=== PATIENT | female | born 1930 | race African-American/Black ===

== ENCOUNTER 2020-12-19 10:50 | Inpatient (IN) | payer BC ==
[~2020-12-19] VITALS: Ht 157.5 cm; Wt 62.7 kg
[~2020-12-19 10:50] MED LIST: LIDOCAINE HCL/PF 1% 2ML VIAL ONE
[2020-12-19] MEDS ORDERED: ASPIRIN 325MG TABLET PO ONE (11:30)
[2020-12-19 11:37] LABS: BASOPHILS % 0.5 % (0.0-2.0); HEMATOCRIT. 37.6 % (36.0-48.0); HEMOGLOBIN. 12.6 g/dL (12.0-16.0); LYMPHOCYTES % 24.9 % (20.0-50.0); MEAN CORPUSCULAR HEMOGLOBIN 28.2 pg (28.0-32.0); MEAN CORPUSCULAR VOLUME 84.2 fL (81.0-99.0); MEAN PLATELET VOLUME 8.8 fl (7.4-10.4); MONOCYTES % 3.5 % (2.0-8.0); NEUTROPHILS % 70.1 % (40.0-76.0); PLATELET 276 x1000/uL (130-400); RED BLOOD CELL COUNT 4.46 mill/uL (4.2-5.4); RED CELL DISTRIBUTION WIDTH 15.3 % (11.6-14.6)
[2020-12-19 11:45] LABS: CHLORIDE 102 mEq/L (98-107)
[2020-12-19 11:53] LABS: PROTHROMBIN TIME 11.1 sec (9.6-11.0)
[2020-12-19 11:55] LABS: BG BASE EXCESS 4.1 mmol/L (-2.0-2.0); BG CARBOXYHEMOGLOBIN 0.5 % (0.5-1.5); BG DEOXYHEMOGLOBIN 5.9 % (0.0-5.0); BG FRACTION INSPIRED OXYGEN 28; BG HCO3 ACT 29.3 mmol/L (22.0-26.0); BG METHEMOGLOBIN 0.3 % (0.0-1.5); BG OXYGEN SATURATION 94.1 % (92.0-98.5); BG OXYHEMOGLOBIN 93.3 % (94.0-97.0); BG PCO2 46.7 mmHg (35.0-45.0); BG PH 7.416 (7.350-7.450); BG PO2 70.1 mmHg (75.0-100.0); BG SAMPLE SITE RIGHT RADIAL; BG TOTAL HEMOGLOBIN 12.7 g/dL (12.0-18.0); BG VENT MODE NASAL CANNULA
[2020-12-19] MEDS ORDERED: CEFTRIAXONE 1 G PREMIX 50 ML IV ONE (12:00)
[2020-12-19] MEDS ORDERED: AZITHROMYCIN 500 MG TABLET PO ONE (12:00)
[2020-12-19] MEDS ORDERED: FUROSEMIDE 20MG/2ML VIAL IVP ONE (12:00)
[2020-12-19] MEDS ORDERED: POTASSIUM CHLORIDE 20MEQ TABLET SR PO ONE (12:15)
[2020-12-19] MEDS ORDERED: AMLODIPINE 5MG TABLET PO NR (12:45)
[2020-12-19] MEDS ORDERED: ENOXAPARIN 80MG/0.8ML SYR SUBCUT SCH (13:15)
[2020-12-19] MEDS: NITROGLYCERIN OINT 1GM/INCH UDPKT TD SCH ×3 (13:32→20:00)
[2020-12-19 17:30] VITALS: BP 174/104
[2020-12-19] MEDS: POTASSIUM CHLORIDE 20MEQ TABLET SR PO SCH (18:28)
[2020-12-19 18:29] VITALS: BP 168/88
[2020-12-19] MEDS: FUROSEMIDE 40MG/4ML VIAL IVP SCH (18:29)
[2020-12-19] MEDS ORDERED: ACETAMINOPHEN 325MG TABLET PO PRN ×2 (19:00)
[2020-12-19] MEDS ORDERED: MAGNESIUM/ALUMINUM HYDROXIDE/SIMETHICONE 30ML UDC PO PRN (19:00)
[2020-12-19] MEDS ORDERED: CLONIDINE 0.1MG TABLET PO PRN (19:00)
[2020-12-19] MEDS ORDERED: HYDRALAZINE 20MG/ML VIAL IV PRN (19:00)
[2020-12-19] MEDS ORDERED: ONDANSETRON HCL 4MG/2ML INJ IV PRN (19:00)
[2020-12-19 19:26] LABS: T4 FREE 1.35 ng/dL (0.76-1.46)
[2020-12-19 20:00] VITALS: BP 163/102
[2020-12-19] MEDS ORDERED: CARVEDILOL 12.5MG TABLET PO SCH (21:00)
[2020-12-19] MEDS ORDERED: ZOLPIDEM TARTRATE 5MG TABLET PO PRN (21:00)
[2020-12-19] MEDS: OMEPRAZOLE 20MG CAPSULE EXTENDED RELEASE PO SCH (21:33)
[2020-12-19] MEDS: AMLODIPINE 5MG TABLET PO SCH (21:34)
[2020-12-19] MEDS: SODIUM CHLORIDE 0.9% INJ 3ML FLUSH IVF SCH (21:35)
[2020-12-19] MEDS: TIMOLOL MALEATE 0.5% OPHTH DROPS 5ML EACHEYE SCH (21:36)
[2020-12-19 22:00] VITALS: BP 131/64
[2020-12-19] MEDS ORDERED: ENOXAPARIN 60MG/0.6ML SYR SUBCUT NR (22:00)
[2020-12-19] MEDS ORDERED: CLONIDINE 0.1MG TABLET PO SCH (22:00)
[2020-12-20] VITALS (11 sets, daily range): BP systolic 100–146; BP diastolic 44–99
[2020-12-20] MEDS: NITROGLYCERIN OINT 1GM/INCH UDPKT TD SCH ×4 (00:27→21:18)
[2020-12-20] MEDS: OMEPRAZOLE 20MG CAPSULE EXTENDED RELEASE PO SCH ×2 (06:45→21:16)
[2020-12-20] MEDS: FUROSEMIDE 40MG/4ML VIAL IVP SCH ×2 (06:45→17:16)
[2020-12-20] MEDS: SODIUM CHLORIDE 0.9% INJ 3ML FLUSH IVF SCH ×3 (06:45→21:17)
[2020-12-20 06:50] LABS: BASOPHILS % 0.8 % (0.0-2.0); EOSINOPHILS % 0.1 % (0.0-5.0); HEMATOCRIT. 32.9 % (36.0-48.0); LYMPHOCYTES % 25.9 % (20.0-50.0); MEAN CORPUSCULAR HEMOGLOBIN 27.9 pg (28.0-32.0); MEAN CORPUSCULAR VOLUME 83.8 fL (81.0-99.0); MEAN PLATELET VOLUME 9.3 fl (7.4-10.4); MONOCYTES % 5.2 % (2.0-8.0); PLATELET 239 x1000/uL (130-400); RED BLOOD CELL COUNT 3.93 mill/uL (4.2-5.4)
[2020-12-20 07:40] LABS: CHLORIDE 102 mEq/L (98-107)
[2020-12-20 07:51] LABS: PHOSPHORUS 3.1 mg/dL (2.5-4.9)
[2020-12-20] MEDS: POTASSIUM CHLORIDE 20MEQ TABLET SR PO SCH ×2 (09:37→17:15)
[2020-12-20] MEDS: CARVEDILOL 6.25 MG TABLET PO SCH ×2 (09:38→21:16)
[2020-12-20] MEDS: AMLODIPINE 5MG TABLET PO SCH ×2 (09:38→21:16)
[2020-12-20] MEDS: TIMOLOL MALEATE 0.5% OPHTH DROPS 5ML EACHEYE SCH (21:15)
[2020-12-20] MEDS ORDERED: ENOXAPARIN 60MG/0.6ML SYR SUBCUT ONE (22:00)
[2020-12-21] VITALS (13 sets, daily range): BP systolic 108–160; BP diastolic 61–99
[2020-12-21] MEDS: SODIUM CHLORIDE 0.9% INJ 3ML FLUSH IVF SCH (05:44)
[2020-12-21] MEDS: OMEPRAZOLE 20MG CAPSULE EXTENDED RELEASE PO SCH ×2 (05:44→21:27)
[2020-12-21] MEDS: NITROGLYCERIN OINT 1GM/INCH UDPKT TD SCH ×3 (05:44→21:26)
[2020-12-21 06:09] LABS: BASOPHILS % 0.7 % (0.0-2.0); EOSINOPHILS % 1.2 % (0.0-5.0); HEMATOCRIT. 34.8 % (36.0-48.0); HEMOGLOBIN. 11.5 g/dL (12.0-16.0); LYMPHOCYTES % 44.6 % (20.0-50.0); MEAN CORPUSCULAR VOLUME 84.5 fL (81.0-99.0); MEAN PLATELET VOLUME 9.2 fl (7.4-10.4); MONOCYTES % 8.2 % (2.0-8.0); NEUTROPHILS % 45.3 % (40.0-76.0); PLATELET 246 x1000/uL (130-400); RED BLOOD CELL COUNT 4.12 mill/uL (4.2-5.4)
[2020-12-21 06:44] LABS: CHLORIDE 102 mEq/L (98-107)
[2020-12-21] MEDS: FUROSEMIDE 40MG/4ML VIAL IVP SCH (07:27)
[2020-12-21] MEDS: AMLODIPINE 5MG TABLET PO SCH ×2 (08:16→21:27)
[2020-12-21] MEDS: CARVEDILOL 6.25 MG TABLET PO SCH ×2 (08:16→21:27)
[2020-12-21] MEDS: POTASSIUM CHLORIDE 20MEQ TABLET SR PO SCH ×2 (08:16→18:05)
[2020-12-21] MEDS ORDERED: KCL 20MEQ/100ML PREMIX 100 ML IV ONE (08:30)
[2020-12-21] MEDS ORDERED: DEXT 5%/0.45% NACL 1000ML 1,000 ML IV SCH (09:15)
[2020-12-21] MEDS ORDERED: ASPIRIN 81MG EC TABLET PO SCH (15:00)
[2020-12-21] MEDS: TIMOLOL MALEATE 0.5% OPHTH DROPS 5ML EACHEYE SCH (21:26)
[2020-12-21] MEDS ORDERED: ENOXAPARIN 60MG/0.6ML SYR SUBCUT SCH (22:00)
[2020-12-22] VITALS (23 sets, daily range): BP systolic 96–190; BP diastolic 47–117
[2020-12-22] MEDS: OMEPRAZOLE 20MG CAPSULE EXTENDED RELEASE PO SCH (06:03)
[2020-12-22] MEDS: NITROGLYCERIN OINT 1GM/INCH UDPKT TD SCH ×3 (06:18→21:32)
[2020-12-22 11:05] LABS: CHLORIDE 103 mEq/L (98-107)
[2020-12-22] MEDS ORDERED: NITROGLYCERIN 50MCG/ML 10ML VIAL (CATH LAB) IV ONE (14:00)
[2020-12-22] MEDS ORDERED: HEPARIN SODIUM 1,000 UNIT/1ML VIAL IV ONE (14:00)
[2020-12-22] MEDS ORDERED: NICARDIPINE 100MCG/ML 10ML VIAL (CATH LAB) IV ONE (14:00)
[2020-12-22] MEDS ORDERED: LIDOCAINE HCL 1% 20ML VIAL (Pyxis) INJ ONE (14:06)
[2020-12-22] MEDS ORDERED: IOHEXOL-300 100 ML BOTTLE ONE (14:06)
[2020-12-22] MEDS ORDERED: IODIXANOL 320MG/ML 200ML BOTTLE ONE (14:06)
[2020-12-22] MEDS ORDERED: FENTANYL CITRATE/PF 50MCG/ML 2ML VIAL ONE (14:20)
[2020-12-22] MEDS ORDERED: MIDAZOLAM HCL 2 MG/2 ML VIAL ONE (14:20)
[2020-12-22] MEDS ORDERED: ASPIRIN 325MG TABLET ONE (15:21)
[2020-12-22] MEDS ORDERED: CLOPIDOGREL 75MG TABLET ONE (15:21)
[2020-12-22] MEDS ORDERED: ACETAMINOPHEN 325MG TABLET PO PRN (15:30)
[2020-12-22] MEDS ORDERED: ONDANSETRON HCL 4MG/2ML INJ IV PRN (15:30)
[2020-12-22] MEDS ORDERED: ATROPINE SULFATE 1MG/10ML SYR IV PRN (15:30)
[2020-12-22] MEDS: POTASSIUM CHLORIDE 20MEQ TABLET SR PO SCH ×2 (15:48→21:32)
[2020-12-22] MEDS: FUROSEMIDE 40MG/4ML VIAL IVP SCH (15:48)
[2020-12-22] MEDS: CARVEDILOL 6.25 MG TABLET PO SCH ×2 (15:49→21:32)
[2020-12-22] MEDS: AMLODIPINE 5MG TABLET PO SCH ×2 (15:49→21:32)
[2020-12-22] MEDS ORDERED: KCL 10MEQ/50ML PREMIX 50 ML IV NR (17:30)
[2020-12-22] MEDS: TIMOLOL MALEATE 0.5% OPHTH DROPS 5ML EACHEYE SCH (21:32)
[2020-12-23] VITALS (9 sets, daily range): BP systolic 97–156; BP diastolic 39–88
[2020-12-23] MEDS: NITROGLYCERIN OINT 1GM/INCH UDPKT TD SCH ×2 (05:09→13:26)
[2020-12-23 06:47] LABS: CHLORIDE 103 mEq/L (98-107)
[2020-12-23 06:49] LABS: BASOPHILS % 0.5 % (0.0-2.0); EOSINOPHILS % 1.1 % (0.0-5.0); HEMATOCRIT. 35.3 % (36.0-48.0); HEMOGLOBIN. 11.7 g/dL (12.0-16.0); LYMPHOCYTES % 35.3 % (20.0-50.0); MEAN CORPUSCULAR HEMOGLOBIN 28.1 pg (28.0-32.0); MEAN CORPUSCULAR VOLUME 84.6 fL (81.0-99.0); MEAN PLATELET VOLUME 9.3 fl (7.4-10.4); MONOCYTES % 9.6 % (2.0-8.0); NEUTROPHILS % 53.5 % (40.0-76.0); PLATELET 272 x1000/uL (130-400); RED BLOOD CELL COUNT 4.17 mill/uL (4.2-5.4); RED CELL DISTRIBUTION WIDTH 14.9 % (11.6-14.6)
[2020-12-23] MEDS ORDERED: FAMOTIDINE 20MG TABLET PO SCH (06:50)
[2020-12-23] MEDS ORDERED: ASPIRIN 325MG TABLET PO SCH (09:00)
[2020-12-23] MEDS: FUROSEMIDE 40MG/4ML VIAL IVP SCH (09:00)
[2020-12-23] MEDS ORDERED: CLOPIDOGREL 75MG TABLET PO SCH (09:00)
[2020-12-23] MEDS: AMLODIPINE 5MG TABLET PO SCH (09:14)
[2020-12-23] MEDS: CARVEDILOL 6.25 MG TABLET PO SCH (09:14)
[2020-12-23] MEDS: POTASSIUM CHLORIDE 20MEQ TABLET SR PO SCH ×2 (09:14→09:20)
== END 2020-12-23 15:30 | disposition home or self-care (01) | DRG 246 ==
LOC: ER 10:50 → 3WST 11:56 → ENRESERV 15:23 → 3WST 12-22 18:24
PROVIDERS: ADMIT Internal Medicine; ATTEND Internal Medicine
PROC: 027034Z Dilation of Coronary Artery, One Artery with Drug-eluting Intraluminal Device, Percutaneous Approach (ICD-10-PCS; principal; 2020-12-22)
PROC: B2111ZZ Fluoroscopy of Multiple Coronary Arteries using Low Osmolar Contrast (ICD-10-PCS; 2020-12-22)
DX: I21.4 Non-ST elevation (NSTEMI) myocardial infarction (principal); I50.43 Acute on chronic combined systolic (congestive) and diastolic (congestive) heart failure; E78.00 Pure hypercholesterolemia, unspecified; E78.5 Hyperlipidemia, unspecified; E87.6 Hypokalemia; I11.0 Hypertensive heart disease with heart failure; K21.9 Gastro-esophageal reflux disease without esophagitis; Z20.822 Contact with and (suspected) exposure to COVID-19; I25.110 Atherosclerotic heart disease of native coronary artery with unstable angina pectoris; Z66 Do not resuscitate; I25.2 Old myocardial infarction; Z82.49 Family history of ischemic heart disease and other diseases of the circulatory system; Z90.49 Acquired absence of other specified parts of digestive tract; Z90.710 Acquired absence of both cervix and uterus; Z79.82 Long term (current) use of aspirin; Z79.02 Long term (current) use of antithrombotics/antiplatelets; Z79.899 Other long term (current) drug therapy
CPT/HCPCS: 36415; 36600; 71045; 80048; 80053; 82375; 82805; 83735; 83880; 84100; 84439; 84443; 84484; 85025; 85347; 87426; 92928; 93005; 93306; 93454; 93970; 99291; C1769; C1874; C1887; C1893; J0696; J1644; J1650; J1940; J2250; J2405; J3010; J3480; J3490; Q9967